=== PATIENT | male | born 2000 | race Caucasian/White ===

== ENCOUNTER 2022-03-06 20:19 | Emergency (ER) | payer OTHER, SELFPAY ==
[2022-03-06 20:40] VITALS: BP 157/90; PULSE 97; RESP 18; TEMP 36.7; O2SAT 100; BMI 55.3
--- NOTE | 2022-03-06 20:53 | W.ED.BACK ---
HPI - Back Pain/Injury General: Chief Complaint: Back Pain/Injury Stated Complaint: Sprain Back Time Seen by Provider: 03/06/22 20:52 History of Present Illness: 22-year-old male patient comes in today with back pain on and off for about 1 month. 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 Since then he has had persistent pain on and off with some radiation of pain down the left lower extremity. Patient denies any fever or loss of bowel or bladder control. Associated symptoms: Deny fever(s), nausea or vomiting Review of Systems Const: Denies: fever(s) Card: Denies: chest pain Resp: Denies: dyspnea GI: Denies: nausea, vomiting, diarrhea or constipation : Denies: difficulty urinating Skin/Breast: Denies: rash Physical Exam Const: COMMON NORMALS: alert HENMT: COMMON NORMALS: normocephalic HEAD & SCALP: normocephalic Neck/C-Spine: COMMON NORMALS: full ROM Resp: COMMON NORMALS: normal respiratory effort and clear to auscultation bilaterally AUSCULTATION: clear to auscultation bilaterally Cardio: COMMON NORMALS: regular rate and regular rhythm RATE: regular rate RHYTHM: regular rhythm GI: COMMON NORMALS: Soft to palpation PALPATION: Yes Soft to palpation Back/Pelvis: THORACIC SPINE/UPPER BACK: Yes thoracic spinal tenderness LUMBAR SPINE/LOWER BACK: Yes lumbar spinal tenderness Lumbar spinal tenderness location: L4 and L5 and Yes paraspinal muscle spasm Extremity: COMMON NORMALS: full ROM Neuro: SENSORIUM/ORIENTATION: Yes alert Skin: COMMON NORMALS: turgor normal GENERAL SKIN EXAM: turgor normal Course Vital Signs: Vital signs: Vital Signs Temperature 98.1 F 03/06/22 20:40 Pulse Rate 97 03/06/22 20:40 Respiratory Rate 18 03/06/22 20:40 Blood Pressure 157/90 03/06/22 20:40 Pulse Oximetry 100 03/06/22 20:40 Oxygen Delivery Me thod 03/06/22 20:40 MDM - Back Pain/Injury Medical Decision Making 22-year-old male patient comes in today with complaints of recurrent back pain for the last 1 month. Patient reports no falls but did remember an episode where he lifted something and felt a strain in his back about 1 month ago. Leg lift test is negative. Patient does have some spinal tenderness of the L4-L5 region. Patient also has muscle tenderness in the lowers paraspinous region. Differential diagnosis includes intervertebral disc disease, facet arthropathy, lumbar strain. Reviewed exam with patient with recommendations for treatment and follow-up. Patient reported understanding agreed to plan. Discharge Plan Discharge Patient Disposition: Home Clinical Impression: Sciatica Qualifiers: Laterality: left Qualified Code(s): M54.32 - Sciatica, left side Condition: Stable Prescriptions: New diclofenac sodium 75 mg tablet,delayed release (DR/EC) 75 mg PO BID Qty: 30 0RF Discharge Orders: Discharge ED (Routine); Ordered 03/06/22 Ordered By: Benigno Rubi Discharge Diet: Usual diet Discharge Activity: Increase activity as tolerated Patient Instructions: Sciatica (ED) Activity Restrictions/Additional Instructions: Activity as tolerated. Gentle stretching and range of motion exercises. Drink plenty of fluids with the diclofenac. Take diclofenac twice a day routinely for the next 10 days. Follow-up with primary care within the 10 days for further evaluation and consideration of further treatment. Return to ER for new concerns or worsening symptoms such as fever greater than 100.4, loss of bowel or bladder control, or blood in vomit, stool, urine. Coding Level of Care Code ED Api Developer for Bill Barcenas
[2022-03-06] MEDS: dexamethasone 10 mg/mL INJ IM (21:13)
[2022-03-06] MEDS: ketorolac 30 mg/mL INJ IM (21:13)
== END 2022-03-06 21:29 | disposition home or self-care (01) ==
PROVIDERS: Emergency Provider Nurse Practitioner Family
DX: M54.32 Sciatica, left side (principal)
CPT/HCPCS: 96372; 99284; J1100; J1885